=== PATIENT | male | born 1985 | race Caucasian/White ===

== ENCOUNTER 2017-04-03 04:15 | Inpatient (IN) | payer OTHER, MEDICAID ==
[~2017-04-03] VITALS: Ht 175.3 cm; Wt 74.8 kg
[~2017-04-03 04:15] MED LIST: ADA60 PO; ALLO100T21 PO; AMLO2.5T PO; ASPI81CT89 PO; CLON0.3T23 PO; LON2.5 PO; METO25TA PO; PRED20TA5 PO; SEN30 PO; SEVE800T PO; VITA-239 PO
[2017-04-03 04:17] VITALS: BP 147/100
--- NOTE | 2017-04-03 04:20 | NUR ---
AMBULATED TO ER BED 1
--- NOTE | 2017-04-03 04:30 | NUR ---
Patient being evaluated by physician at bedside.
[2017-04-03] MEDS ORDERED: MORPHINE SULFATE 4 MG/ML SYR IVP ONE (04:35)
--- NOTE | 2017-04-03 05:01 | NUR ---
PATIENT IS A 31 Y/O MALE WHO PRESENTS TO THE ED C/O ABD PAIN. PT STATES, "I WAS CONSTIPATED FOR A WEEK AND IT HAS BEEN HURTING." PT REPORTS 8/10 ACHING PAIN ON THE LOWER ABD THAT DOES NOT RADIATE. PT DENIES CP, SOB, REPORTS NAUSEA/VOMITING, DENIES DIARRHEA. NOTED GENERALIZED JAUNDICE. PT AAOX4, RR EVEN/UNLABORED. PT REPOSITIONED FOR COMFORT, BED IN LOWEST POSITION. ER MD DR. GRAY NOTIFIED. WILL CONTINUE TO MONITOR. Addendum: 04/03/17 at 0519 by MEDDCV PATIENT IS A 31 Y/O MALE WHO PRESENTS TO THE ED C/O ABD PAIN. PT STATES, "I WAS CONSTIPATED FOR A WEEK AND IT HAS BEEN HURTING." PT REPORTS 8/10 ACHING PAIN ON THE LOWER ABD THAT DOES NOT RADIATE. PT DENIES CP, SOB, REPORTS NAUSEA/VOMITING, DENIES DIARRHEA. NOTED GENERALIZED JAUNDICE. PT AAOX4, RR EVEN/UNLABORED. NOTED LEFT ABD PERITONEAL DIALYSIS SHUNT. PT REPOSITIONED FOR COMFORT, BED IN LOWEST POSITION. ER MD DR. GRAY NOTIFIED. WILL CONTINUE TO MONITOR.
[2017-04-03 05:07] LABS: BASOPHILS # (AUTO) 0.2 K/uL (0.00-0.22); BASOPHILS % (AUTO) 1.3 % (0.0-2.0); EOSINOPHILS # (AUTO) 0.1 K/uL (0-0.4); EOSINOPHILS % (AUTO) 0.8 % (0.0-4.0); HEMATOCRIT 28.7 % (36-52); HEMOGLOBIN 9.4 g/dL (12.0-18.0); LYMPHOCYTES # (AUTO) 1.6 K/uL (2.0-11.5); LYMPHOCYTES % (AUTO) 13.5 % (20.5-51.1); MEAN CORPUSCULAR HEMOGLOBIN 27 pg (27-31); MEAN CORPUSCULAR HGB CONC 33 g/dL (33-37); MEAN CORPUSCULAR VOLUME 83 fL (80-94); MONOCYTES % (AUTO) 8.8 % (1.7-9.3); NEUTROPHILS # (AUTO) 8.8 K/uL (1.8-7.7); NEUTROPHILS % (AUTO) 75.6 % (42.2-75.2); PLATELET COUNT (AUTO) 198 K/uL (140-450); RED BLOOD CELL COUNT(AUTO) 3.46 MIL/uL (4.20-6.10); WHITE BLOOD COUNT (AUTO) 11.7 K/uL (4.8-10.8)
[2017-04-03 05:30] LABS: ALBUMIN 3.2 g/dL (3.4-5.0); CARBON DIOXIDE 23.7 mmol/L (21-32); POTASSIUM 3.7 mmol/L (3.5-5.1); TOTAL BILIRUBIN 0.5 mg/dL (0.0-1.0)
[2017-04-03 05:32] LABS: CREATININE 19.8 mg/dL (0.7-1.3)
[2017-04-03] MEDS ORDERED: LACTULOSE 20 GM/30 ML UDC PO ONE (05:50)
[2017-04-03] MEDS ORDERED: LEVOFLOXACIN 500 MG/D5W PREMIX 100 ML IV ONE (05:50)
[2017-04-03] MEDS ORDERED: HYDROcodone/APAP 7.5/325 MG 1 TAB PO PRN (06:00)
[2017-04-03] MEDS ORDERED: ACETAMINOPHEN 325 MG TAB PO PRN (06:00)
[2017-04-03] MEDS ORDERED: LOSARTAN (06:08)
--- NOTE | 2017-04-03 06:15 | NUR ---
DR. PETTIT MADE AWARE THAT PT DID NOT HAVE DIALYSIS LAST NIGHT.
[2017-04-03 06:30] VITALS: BP 155/98
--- NOTE | 2017-04-03 06:30 | NUR ---
APatient will be admitted to care of DR. STUBBS. Admited to TELE. Will go to room 105B . Belongings list completed. Report to DEVANG DE LA FUENTE. Addendum: 04/03/17 at 0644 by MEDDCV Patient will be admitted to care of DR. STUBBS. Admited to TELE. Will go to room 105B . Belongings list completed. Report to DEVANG DE LA FUENTE.
--- NOTE | 2017-04-03 06:30 | NUR ---
RECEIVED PT FROM ER VIA [facility] PT IS AAOX4 ON TELEMETRY SR IV ON LEFT HAND GAUGE # 22 INFUSING LEVAQUIN AT THIS TIME, ABD CATHETER FOR PERITONEAL DIALYSIS NOT DISTRESS NOTED MRSA NARES SCREEN PROTOCOL SENT TO LAB PT IS ORIENTED TO THE FLOOR CALL LIGHT WITHIN REACH.
[2017-04-03 06:50] LABS: PROTHROMBIN TIME 9.4 secs (10.8-13.4)
[2017-04-03] MEDS: NACL 0.9% 1,000 ML IV SCH (06:54)
--- NOTE | 2017-04-03 07:30 | NUR ---
RECEIVED BEDSIDE REPORT FROM POST OFFICE CLERK RN. PT IS AAOX4, ON TELE MONITOR, IV NOTED ON THE LEFT HAND GAUGE # 22 INFUSING WELL. ABD CATHETER FOR PERITONEAL DIALYSIS NOTED, DRY, CLEAN AND INTACT. NO S/S OF DISTRESS NOTED. BED LOWERED. CALL LIGHT WITHIN REACH. WILL CONTINUE TO MONITOR.
--- NOTE | 2017-04-03 07:30 | NUR ---
PT IS ENDORSED TO MICHAEL DE LA FUENTE FOR CONTINUITY OF CARE
[2017-04-03 07:42] LABS: CHOL/HDL RATIO 3.7 (1-4.5); FREE T4 (FREE THYROXINE) 1.09 ng/dL (0.76-1.46); MAGNESIUM 2.5 mg/dL (1.8-2.4); PHOSPHORUS 5.4 mg/dL (2.5-4.9); THYROID STIMULATING HORMONE 0.9 uIU/mL (0.34-3.74)
[2017-04-03 07:43] VITALS: BP 156/102
[2017-04-03] MEDS ORDERED: DOCUSATE SODIUM 100 MG GELCAP PO SCH (09:00)
[2017-04-03] MEDS ORDERED: PIPERACILLIN/TAZOBACTAM 2.25 GM in DEXTROSE 5% 50 ML IV SCH (09:00)
[2017-04-03] MEDS: PANTOPRAZOLE 40 MG INJ VIAL IVP SCH (09:08)
[2017-04-03] MEDS: LACTOBACILLUS RHAMNOSUS GG 1 EACH CAP PO SCH (09:08)
--- NOTE | 2017-04-03 09:30 | NUR ---
NOTIFIED DR ABOUT PT'S SEVERE PAIN. DR WILL PUT IN ORDERS.
[2017-04-03] MEDS ORDERED: MORPHINE SULFATE 2 MG/ML SYR IVP PRN (09:50)
[2017-04-03] MEDS: PIPER/TAZO 2.25GM/D5W PREMIX 50 ML IV SCH ×2 (10:05→21:27)
[2017-04-03] MEDS ORDERED: SODIUM PHOSPHATE 118 ML ENEM RC SCH (10:32)
[2017-04-03] MEDS: SODIUM PHOSPHATE 118 ML ENEM RC PRN ×2 (11:15→17:28)
--- NOTE | 2017-04-03 11:15 | NUR ---
ENEMA GIVEN, PT WENT TO RESTROOM BUT STATED HE DIDN'T HAVE ANY BM. DR NOTIFIED.
[2017-04-03] MEDS ORDERED: HYDROmorphone PFS 2 MG/ML SYR IVP PRN (11:30)
[2017-04-03] MEDS ORDERED: MORPHINE SULFATE 4 MG/ML SYR IVP PRN (11:45)
[2017-04-03] MEDS: METOCLOPRAMIDE 10 MG/2 ML INJ VIAL IVP SCH ×3 (11:59→23:10)
[2017-04-03] MEDS: LACTULOSE 20 GM/30 ML UDC PO SCH ×2 (11:59→16:37)
[2017-04-03] MEDS: SENNA 8.6 MG TAB PO SCH ×3 (11:59→21:28)
[2017-04-03 12:00] VITALS: BP 176/108
--- NOTE | 2017-04-03 12:00 | NUR ---
PT WAS HEP LOCKED FOR ABD CT. TICKET TO RIDE PROVIDED.
[2017-04-03] MEDS: ONDANSETRON 4 MG/2 ML VIAL IVP PRN (12:54)
--- NOTE | 2017-04-03 13:00 | NUR ---
NOTIFIED DR ABAD ABOUT PT'S ELEVATED BLOOD PRESSURE 176/108. STATED WILL ORDER TO CONTINUE WITH SOME OF PT'S HOME MEDS.
--- NOTE | 2017-04-03 15:30 | NUR ---
CHARGE NURSE KI NOTIFIED DIALYSIS NURSE ALICIA, MADE HER AWARE OF MD'S DIALYSIS ORDER FOR THE PT.
--- NOTE | 2017-04-03 16:25 | NUR ---
PT WAS HEP LOCKED FOR ABD CT. TICKET TO RIDE PROVIDED. Addendum: 04/03/17 at 1628 by Pelon De La Fuente RN PLEASE DISREGARD THE NOTE, ENTERED WRONG TIME
--- NOTE | 2017-04-03 17:00 | NUR ---
NOTIFIED DR. ABAD ABOUT ELEVATED BP 182/116. DR ABAD STATED IT'S EXPECTED IF PT STILL VOMITING AND CAN GIVE METOPROLOL NOW.
[2017-04-03] MEDS: METOPROLOL 50 MG TAB PO SCH (17:23)
[2017-04-03 17:55] VITALS: BP 182/116
--- NOTE | 2017-04-03 18:00 | NUR ---
PT STATED HE HAD TWO BOWEL MOVEMENT, SMALL AMOUNT. WILL CONTINUE TO MONITOR. LAST ENEMA WAS GIVEN AT 1728.
--- NOTE | 2017-04-03 18:30 | NUR ---
PT HAS BEEN SEEN BY DR. DALLAS. DR HOFFMANN STRESS TEST TOMORROW 1200. WILL HOLD STOOL SOFTENER AND LACTULOSE DUE TO BMX4. Addendum: 04/03/17 at 1919 by Pelon De La Fuente RN PLEASE DISREGARD THIS NOTE, IT'S ON THE WRONG PATIENT
--- NOTE | 2017-04-03 19:16 | NUR ---
ENDORSED PT TO MANAGER TESTING RN. PT REPORT GIVEN AT BEDSIDE. PT IS IN STABLE CONDITION. NO S/S OF DISTRESS NOTED.
--- NOTE | 2017-04-03 19:17 | NUR ---
RECEIVED BEDSIDE REPORT FROM DAY SHIFT NURSE CARLENE RN, PT STABLE, NO DISTRESS NOTED, IV TO THE L HAND 22G RUNNING NS @ 20ML/HR, INFUSING WELL, SKIN INTACT, REPORTED HAVING NO PAIN AT THIS MOMENT, INITIAL ASSESSMENT DONE, ALL SAFETY PRECAUTION MET, CALL LIGHT WITHIN REACH, WILL CONTINUE TO MONITOR.
[2017-04-03] MEDS: NIFEdipine 60 MG TABER PO SCH (19:47)
--- NOTE | 2017-04-03 19:47 | NUR ---
PT BP OF 176/104, BP MEDICATION GIVEN, PT TOLERATED WELL, CALL LIGHT WITHIN REACH, WILL CONTINUE TO MONITOR.
--- NOTE | 2017-04-03 19:50 | NUR ---
PT C/O OF STOMACH ACID AND DISCOMFORT, NOTIFIED DR. PETTIT, ORDERED FAMOTIDINE, WILL CONTINUE WITH ORDER.
[2017-04-03 20:00] VITALS: BP 176/104
--- NOTE | 2017-04-03 20:10 | NUR ---
DIALYSIS NURSE AT BEDSIDE, TO START PERITONEAL DIALYSIS. PT STABLE, NO DISTRESS NOTED, CALL LIGHT WITHIN REACH.
[2017-04-03] MEDS ORDERED: FAMOTIDINE 20 MG TAB PO SCH ×2 (20:20→22:50)
[2017-04-03] MEDS: POLYETHYLENE GLYCOL 17 GM/PKT PO SCH (21:00)
[2017-04-03] MEDS: LOSARTAN 25 MG TAB PO SCH (21:27)
--- NOTE | 2017-04-03 21:28 | NUR ---
DUE MEDICATION GIVEN, PT REFUSED MIRALAX, TOLERATED WELL, NO DISTRESS NOTED, CALL LIGHT WITHIN REACH.
--- NOTE | 2017-04-03 23:39 | NUR ---
PT BP OF 193/122, HR OF 68, PT ASYMPTOMATIC, NO DISTRESS NOTED, DR. PETTIT NOTIFIED, DR SAW PT, AND ORDERED CLONIDINE 0.4 MG TO BE GIVEN. WILL CONTINUE WITH ORDER.
[2017-04-03] MEDS ORDERED: cloNIDine 0.1 MG TAB PO ONE (23:45)
[2017-04-03] MEDS ORDERED: cloNIDine 0.1 MG TAB PO SCH (23:55)
[2017-04-04] VITALS: BP 193/122
--- NOTE | 2017-04-04 00:07 | NUR ---
BP MEDICATION GIVEN PER DR ORDER, PT STABLE, NO DISTRESS NOTED, CALL LIGHT WITHIN REACH.
[2017-04-04 00:38] VITALS: BP 153/94
[2017-04-04 01:38] VITALS: BP 138/77
--- NOTE | 2017-04-04 01:38 | NUR ---
RECHECKED PT BP, 138/77 HR OF 67. PT STABLE, NO DISTRESS NOTED, CALL LIGHT WITHIN REACH.
[2017-04-04 04:00] VITALS: BP 128/82
--- NOTE | 2017-04-04 04:10 | NUR ---
PT SLEEPING, NO DISTRESS NOTED, CALL LIGHT WITHIN REACH, WILL CONTINUE TO MONITOR.
[2017-04-04 05:46] LABS: BASOPHILS # (AUTO) 0.2 K/uL (0.00-0.22); BASOPHILS % (AUTO) 1.5 % (0.0-2.0); EOSINOPHILS # (AUTO) 0.1 K/uL (0-0.4); EOSINOPHILS % (AUTO) 0.7 % (0.0-4.0); HEMATOCRIT 26.1 % (36-52); HEMOGLOBIN 8.4 g/dL (12.0-18.0); LYMPHOCYTES # (AUTO) 1.7 K/uL (2.0-11.5); LYMPHOCYTES % (AUTO) 14.9 % (20.5-51.1); MEAN CORPUSCULAR HEMOGLOBIN 27 pg (27-31); MEAN CORPUSCULAR HGB CONC 32 g/dL (33-37); MEAN CORPUSCULAR VOLUME 83 fL (80-94); MONOCYTES % (AUTO) 8.7 % (1.7-9.3); NEUTROPHILS # (AUTO) 8.1 K/uL (1.8-7.7); NEUTROPHILS % (AUTO) 74.2 % (42.2-75.2); PLATELET COUNT (AUTO) 180 K/uL (140-450); RED BLOOD CELL COUNT(AUTO) 3.15 MIL/uL (4.20-6.10); RED CELL DISTRIBUTION WIDTH 15.1 % (11.6-13.7); WHITE BLOOD COUNT (AUTO) 11.1 K/uL (4.8-10.8)
[2017-04-04] MEDS: NACL 0.9% 1,000 ML IV SCH (05:58)
[2017-04-04] MEDS: METOCLOPRAMIDE 10 MG/2 ML INJ VIAL IVP SCH (06:00)
[2017-04-04 06:10] LABS: ANION GAP 14.3 (8-16); CARBON DIOXIDE 28.5 mmol/L (21-32); POTASSIUM 3.8 mmol/L (3.5-5.1)
[2017-04-04 06:13] LABS: MAGNESIUM 2.6 mg/dL (1.8-2.4); PHOSPHORUS 6.2 mg/dL (2.5-4.9)
[2017-04-04 06:16] LABS: CREATININE 19.9 mg/dL (0.7-1.3)
--- NOTE | 2017-04-04 07:19 | NUR ---
GAVE BEDSIDE REPORT TO DAY SHIFT NURSE CARLENE, ENDORSED PLAN OF CARE, PT RESTING, NO DISTRESS NOTED.
--- NOTE | 2017-04-04 07:20 | NUR ---
RECEIVED BEDSIDE REPORT FROM GRAVITY MANAGER RN. PT IS AAOX4, ON TELE MONITOR, IV NOTED ON THE LEFT HAND GAUGE # 22 INFUSING WELL. PT LIES IN BED COMFORTABLY, PERITONEAL DIALYSIS IS RUNNING, PT DENIES ANY PAIN AT THIS TIME. NO S/S OF DISTRESS NOTED. BED LOWERED. CALL LIGHT WITHIN REACH. WILL CONTINUE TO MONITOR.
[2017-04-04 08:04] VITALS: BP 155/87
--- NOTE | 2017-04-04 08:40 | NUR ---
PT FINISHED PERITONEAL DIALYSIS. PT IS IN STABLE CONDITION.
[2017-04-04] MEDS: LACTOBACILLUS RHAMNOSUS GG 1 EACH CAP PO SCH (08:48)
[2017-04-04] MEDS: SENNA 8.6 MG TAB PO SCH (08:49)
[2017-04-04] MEDS: PANTOPRAZOLE 40 MG INJ VIAL IVP SCH (08:49)
[2017-04-04] MEDS: POLYETHYLENE GLYCOL 17 GM/PKT PO SCH (08:49)
[2017-04-04] MEDS: LACTULOSE 20 GM/30 ML UDC PO SCH (08:50)
[2017-04-04] MEDS ORDERED: cloNIDine 0.1 MG TAB PO SCH ×2 (09:00)
[2017-04-04] MEDS ORDERED: MINOXIDIL 10 MG TAB PO SCH (09:00)
[2017-04-04] MEDS: LOSARTAN 25 MG TAB PO SCH (09:00)
[2017-04-04] MEDS ORDERED: [UNRECOGNIZED DRUG - REMARK] PO SCH (09:00)
[2017-04-04] MEDS ORDERED: METOPROLOL 50 MG TAB PO SCH (09:00)
[2017-04-04] MEDS ORDERED: LISINOPRIL 10 MG TAB PO SCH (09:00)
[2017-04-04] MEDS ORDERED: NIFEdipine 60 MG TABER PO SCH (09:00)
[2017-04-04] MEDS ORDERED: CINACALCET 30 MG TAB PO SCH (09:00)
[2017-04-04] MEDS: METOPROLOL 50 MG TAB PO SCH (09:00)
[2017-04-04] MEDS ORDERED: amLODIPine 5 MG TAB PO SCH (09:00)
--- NOTE | 2017-04-04 09:00 | NUR ---
PT STATED HE DOES NOT WANT TO TAKE HIS BLOOD PRESSURE MEDICATIONS ALL AT ONCE BECAUSE OF DRUG INTERACTIONS. HE SAID HE HAD BAD REACTION WHEN TAKING THEM TOGETHER. HE WANTS TO SPACE THEM OUT.
[2017-04-04] MEDS: ONDANSETRON 4 MG/2 ML VIAL IVP PRN (09:41)
--- NOTE | 2017-04-04 09:49 | NUR ---
PATIENT HAS BEEN SCREENED AND CATEGORIZED MODERATE NUTRITION RISK. PATIENT WILL BE SEEN WITHIN 3-5 DAYS OF ADMISSION. 04/05/17-04/07/[address]
--- NOTE | 2017-04-04 10:06 | NUR ---
PT STATED HE FELT MUCH BETTER AND HE HAD A BOWEL MOVEMENT, MODERATE AMOUNT AND BROWN IN COLOR.
[2017-04-04] MEDS: PIPER/TAZO 2.25GM/D5W PREMIX 50 ML IV SCH (10:15)
[2017-04-04] MEDS ORDERED: CLON0.3T23 PO (10:20)
[2017-04-04] MEDS ORDERED: AMLO10TA PO (10:20)
[2017-04-04] MEDS ORDERED: METO25TA PO (10:33)
[2017-04-04] MEDS: NIFEdipine 60 MG TABER PO SCH (11:24)
[2017-04-04 12:04] VITALS: BP 134/76
--- NOTE | 2017-04-04 12:30 | NUR ---
PT DISCHARGED TO HOME PER MD ORDER. MEDICATION TEACHINGS AND DISCHARGE INSTRUCTIONS PROVIDED. PT VERBALIZED UNDERSTANDING. IV CATH DC'ED, TIP INTACT, PRESSURE APPLIED. NO S/S OF DISTRESS NOTED. PT DENIES PAIN, VOMITING AND NAUSEA. PT LEFT IN STABLE CONDITION AND WITH ALL HIS BELONGINGS.
[2017-04-05] MEDS ORDERED: FAMOTIDINE 20 MG TAB PO SCH (09:00)
== END 2017-04-04 12:30 | disposition home or self-care (01) | DRG 391 ==
LOC: MED 04:15 → MTU 06:01
PROVIDERS: ADMIT Family Medicine; ATTEND Family Medicine
PROC: 3E1M39Z Irrigation of Peritoneal Cavity using Dialysate, Percutaneous Approach (ICD-10-PCS; principal; 2017-04-03)
DX: K52.9 Noninfective gastroenteritis and colitis, unspecified (principal); N18.6 End stage renal disease; N17.0 Acute kidney failure with tubular necrosis; I13.2 Hypertensive heart and chronic kidney disease with heart failure and with stage 5 chronic kidney disease, or end stage renal disease; I50.43 Acute on chronic combined systolic (congestive) and diastolic (congestive) heart failure; E87.1 Hypo-osmolality and hyponatremia; K56.41 Fecal impaction; E83.41 Hypermagnesemia; D63.1 Anemia in chronic kidney disease; E83.39 Other disorders of phosphorus metabolism; F12.90 Cannabis use, unspecified, uncomplicated; Z99.2 Dependence on renal dialysis; Z79.899 Other long term (current) drug therapy; Z79.82 Long term (current) use of aspirin; Z88.8 Allergy status to other drugs, medicaments and biological substances; Z82.49 Family history of ischemic heart disease and other diseases of the circulatory system
CPT/HCPCS: 36415; 71010; 74020; 80048; 80053; 82140; 82150; 83036; 83690; 83735; 83880; 84100; 84439; 84443; 84484; 85025; 85610; 85730; 87081; 93005; 96365; 96375; 99285; C9113; J1170; J1956; J2270; J2405; J2543; J2765; J7030; J7060; Q0092

== ENCOUNTER 2018-12-17 10:20 | Emergency (ER) | payer OTHER, MEDICAID ==
[~2018-12-17] VITALS: Ht 175.3 cm; Wt 78.0 kg
[~2018-12-17 10:20] MED LIST changes: -ALLO100T21 PO; +AMLO10TA PO; -AMLO2.5T PO; -ASPI81CT89 PO; -LON2.5 PO; +LOSARTAN; -PRED20TA5 PO
[2018-12-17 10:28] VITALS: BP 196/114
--- NOTE | 2018-12-17 10:52 | NUR ---
PT BIB SELF WITH C/O CP X 40 MIN. STATES TO HAVE BURNING CONSTANT PAIN AT THE LFT SIDE OF THE CHEST THAT RADIATES ACROSS LT CHEST AND SHOULDER. + SOB -N/V. DENIES DRUG USE. CONNECTED TO 2 L NC AND MONITOR . BP 180/102, DUIALYSIS PT, HAS PERITONEAL ACCESS FOR HD AT HOME. PT STATES BEING COMFORTABLE AFTER CONNCTED TO IO2 VIA NC. RESPIRATION EVEN , SLIGHT USE OF THE ACCESSORY MUSCLE. PT DENIES ANY N, V, D. DENIES CHILLS , FEVER. PT IS AAOX4, CLEAR SPEECH, EQAUL STRENGHT ON BOTH HANDS, NO FACIAL DROOPING. IV STARTED AT LFT AC 20G. DENIES LORA, BLURRY VISION. CHEST PAIN 8/[address] VIVAS ASSESSING PT AT THE BEDSIDE. PER PT, TOOK BP MEDS AT HOME BEFORE COMIMG TO ER. WILL CONTINUE TO MONITOR PT. MEDHX:PERITONEAL DIALYSIS, HTN RX:BENADRYL, NEFIDIPINE, CLONIDINE, LOSARTAN
--- NOTE | 2018-12-17 11:06 | NUR ---
CHECKED ON PT. LYING COMFORTABLY AT BED AT THIS TIME. PAIN 4/10 , STATES TO HAVE LOWERED WITH O2 VIA NC. PT NORMAL BREATHING, NO USE OF ACCESSORY MUSCLES. WILL CONTINUE TO MONTIOR PT.
[2018-12-17] MEDS ORDERED: cloNIDine 0.1 MG TAB PO ONE (11:20)
--- NOTE | 2018-12-17 11:26 | NUR ---
CHECKED ON PT. LYING COMFORTABLY IN HIS BED. DENIES ANY PAIN AT THIS TIME. ADMINISTERED MEDS ORDERED.WILL CONTINUE TO MONITOR PT. FAMILY AT THE BEDSIDE.
--- NOTE | 2018-12-17 13:10 | NUR ---
RECEIVED REPORT FROM SUDHAKAR VALDEZ, PT IN BED RESTING, NO C/O PAIN AT THIS TIME . RR EVEN UNLABORED, WILL CONTINUE TO MONITOR CLOSELY.
--- NOTE | 2018-12-17 13:17 | NUR ---
INFORMED ED MD DR. LEOS RE: TROPONIN RESULT AT THIS TIME.
[2018-12-17] MEDS ORDERED: amLODIPine 5 MG TAB PO ONE (13:30)
--- NOTE | 2018-12-17 13:30 | NUR ---
VS RECHECKED, ED MD DR. LEOS MADE AWARE RE: BP 174/105, PT AAOX4, RR EVEN UNLABORED, GCS 15, NO C/O PAIN AT THIS TIME 0/10. WILL CONTINUE TO MONITOR CLOSELY.
[2018-12-17 14:41] VITALS: BP 174/105
--- NOTE | 2018-12-17 14:42 | NUR ---
PT DISCHARGED TO HOME . DENIES ANY SOB, CP. BLOOD PRESSURE SLIGHTLY ELEVATED. MADE AWARE. PT TO TAKE THE BP MEDS AT HOME PT HAS CONSISTENT ELEVATED BP ALL TIME. PT OKAY TO GO HOME.
--- NOTE | 2018-12-17 14:43 | NUR ---
Patient discharged with v/s stable. Written and verbal after care instructions given and explained. Patient alert, oriented and verbalized understanding of instructions. Ambulatory with steady gait. All questions addressed prior to discharge. ID band removed. Patient advised to follow up with PMD. Rx of TRAMADOL HCL 50 MG TAB given. Patient educated on indication of medication including possible reaction and side effects. Opportunity to ask questions provided and answered.
== END 2018-12-17 14:43 | disposition home or self-care (01) ==
LOC: MED 10:20
DX: R07.89 Other chest pain (principal); R06.02 Shortness of breath; R61 Generalized hyperhidrosis; I12.9 Hypertensive chronic kidney disease with stage 1 through stage 4 chronic kidney disease, or unspecified chronic kidney disease; N18.6 End stage renal disease; E05.90 Thyrotoxicosis, unspecified without thyrotoxic crisis or storm; Z99.2 Dependence on renal dialysis; Z79.899 Other long term (current) drug therapy
CPT/HCPCS: 36415; 84484; 93005; 99284

== ENCOUNTER 2020-06-16 15:00 | Emergency (ER) | payer OTHER, MEDICAID ==
[~2020-06-16] VITALS: Ht 175.3 cm; Wt 70.3 kg
[~2020-06-16 15:00] MED LIST changes: -ADA60 PO; +CLON-865 PO; -CLON0.3T23 PO; +NIFE-183 PO
[2020-06-16 15:03] VITALS: BP 199/94
--- NOTE | 2020-06-16 15:10 | NUR ---
pt ambulated to bed 7 with steady gait
[2020-06-16] MEDS ORDERED: LORazepam 1 MG TAB PO ONE (15:15)
--- NOTE | 2020-06-16 15:19 | NUR ---
EMT AT BEDSIDE FOR EKG
--- NOTE | 2020-06-16 15:22 | NUR ---
35 Y/O MALE C/O SOB AND ANGINA 11/11 STARTED 1300 TODAY. DESCRIBES PRESSURE AND RADIATES TO LEFT AND RIGHT SHOULDER. PT STATES DIALYSIS MWF, TODAY AT 0900 WITH LEFT CHEST SIDE PORT PRESENT. PT STATE HE FELT GOOD LEAVING DIALYSIS THEN BECAME SOB, HOT FLASHES, AND CHILLS. PT IS ANURIC WITH LBM THIS MORNING THAT PT STATES WAS NORMAL FOR HIM. PT DENIES N/V. PT LUNG SOUNDS CLEAR BILATERAL THROUGHOUT, CAP REFILL <3 SECONDS, WITH NO EDEMA. PT TOOK HIS PRESCRIBED METOPROLOL AND CLONIDINE TODAY. PT IS A&O X4, LAYING IN BED. BED IN LOWEST POSITION, BRAKES LOCKED WITH X1 SIDERAIL UP. PT STATED HE HAS BEEN UNDER A LOT OF STRESS LATELY- PT HAD PERITONEAL CATHETETER- HAD IT REMOVED DUE TO INFECTION WITH ABX X6 MONTHS. PMH: ESRD, HTN ALLERGIES TO HYDRALIZINE
--- NOTE | 2020-06-16 15:38 | NUR ---
RAD AT PT BEDSIDE
[2020-06-16 15:39] LABS: BASOPHILS # (AUTO) 0.1 K/uL (0.00-0.22); EOSINOPHILS # (AUTO) 0.2 K/uL (0-0.4); EOSINOPHILS % (AUTO) 2.8 % (0.0-4.0); HEMATOCRIT 33.3 % (36-52); HEMOGLOBIN 10.9 g/dL (12.0-18.0); LYMPHOCYTES # (AUTO) 1.1 K/uL (2.0-11.5); LYMPHOCYTES % (AUTO) 13.7 % (20.5-51.1); MEAN CORPUSCULAR HEMOGLOBIN 26 pg (27-31); MEAN CORPUSCULAR HGB CONC 33 g/dL (33-37); MEAN CORPUSCULAR VOLUME 77.7 fL (80-94); MONOCYTES # (AUTO) 0.6 K/uL (0.8-1.0); MONOCYTES % (AUTO) 7.7 % (1.7-9.3); NEUTROPHILS # (AUTO) 6.1 K/uL (1.8-7.7); NEUTROPHILS % (AUTO) 74.8 % (42.2-75.2); PLATELET COUNT (AUTO) 252 K/uL (140-450); RED BLOOD CELL COUNT(AUTO) 4.29 MIL/uL (4.20-6.10); RED CELL DISTRIBUTION WIDTH 14.4 % (11.6-13.7); WHITE BLOOD COUNT (AUTO) 8.1 K/uL (4.8-10.8)
[2020-06-16 15:55] LABS: ALBUMIN 4.2 g/dL (3.4-5.0); ANION GAP 15.7 (8-16); CARBON DIOXIDE 31.3 mmol/L (21-32); TOTAL BILIRUBIN 0.4 mg/dL (0.0-1.0)
[2020-06-16 16:12] LABS: CREATININE 6.5 mg/dL (0.6-1.3)
--- NOTE | 2020-06-16 16:47 | NUR ---
PT SLEEPING IN BED WITH EVEN AND UNLABORED RESPIRATIONS OBSERVED. BED IN LOWEST POSITION, BRAKES LOCKED, X1 SIDERAIL UP. VSS. WILL CONTINUE TO MONITOR.
--- NOTE | 2020-06-16 17:34 | NUR ---
EMT MARIELLA AT BEDSIDE FOR EKG
--- NOTE | 2020-06-16 17:55 | NUR ---
LAB AT PT BEDSIDE
[2020-06-16 18:55] VITALS: BP 179/106
--- NOTE | 2020-06-16 18:56 | NUR ---
Patient does not wish to proceed with medical care recommended by DR. CASPER. Patient given information related to possible complications, up to and including , which could occur as a result of leaving hospital at this time. Patient verbalizes understanding of risks involved leaving against medical advice. Patient has signed AMA form. PT DCRX ATIVAN 0.5MG PO TID PRN ANXIETY.
== END 2020-06-16 15:03 | disposition left against medical advice (07) ==
LOC: MED 15:00
DX: F41.9 Anxiety disorder, unspecified (principal); I12.0 Hypertensive chronic kidney disease with stage 5 chronic kidney disease or end stage renal disease; N18.6 End stage renal disease; Z99.2 Dependence on renal dialysis; E07.9 Disorder of thyroid, unspecified; Z88.8 Allergy status to other drugs, medicaments and biological substances; Z79.899 Other long term (current) drug therapy
CPT/HCPCS: 36415; 71045; 80053; 84484; 85025; 93005; 99285

== ENCOUNTER 2021-01-02 03:39 | Emergency (ER) | payer OTHER, MEDICAID ==
[~2021-01-02] VITALS: Ht 175.3 cm; Wt 77.1 kg
[~2021-01-02 03:39] MED LIST changes: +CEL250 PO; +PRED10TA5 PO; +TACR1CAP17 PO
[2021-01-02 03:42] VITALS: BP 146/89
--- NOTE | 2021-01-02 03:46 | NUR ---
TO ROOM 8 FROM TRIAGE
--- NOTE | 2021-01-02 03:48 | NUR ---
35 YO/M BIBS W C/O DIARRHEA X5 DAYS WATERY APPROX 20EPISODES DAILY NO BLOOD IN BOWEL MOVEMENTS. PATIENT REPORTS INTERMITTENT HEADACHE, STOMACH ACHE, AND VOMITINS THESE SYMPTOMS NOT PRESENT AT THIS TIME. PATIENT REPORTS DAUGHTER WAS SICK W SIMILAR SYMPTOMS INCLUDING THE DIARRHEA. REPORTS HIGHEST TEMP WAS 100.1 FARENHEIT. DENIES ANY DIZZYNESS/LIGHT HEADEDNESS. BOWEL SOUNDS PRESENT THROUGHOUT, ABDOMEN TENDER TO TOUCH ON RLQ. DENIES URINARY PROBLEMS. PATIENT LAYING IN BED LOCKED IN LOWEST POSITION, X1 SIDERAIL UP. HOB ELEVATED. BREATHING EVEN AND UNLABORED. NAD NOTED, WILL CONTINUE TO MONITOR. PMH: R KIDNEY TRANSPLANT X3 MO AGO ALLERGIES: HYDRALAZINE
--- NOTE | 2021-01-02 04:40 | NUR ---
LABS DRAWN AND HANDED TO [facility].
[2021-01-02] MEDS ORDERED: NACL 0.9% 1,000 ML IV ONE (04:45)
--- NOTE | 2021-01-02 05:15 | NUR ---
STOOL AND URINE SAMPLE COLLECTED AND SENT TO LAB W 30CC OF BLACK WATERY STOOL, AND 40 CC OF KALLIE COLORED URINE.
[2021-01-02] MEDS ORDERED: CIPROFLOXACIN 250 MG TAB PO ONE (06:00)
[2021-01-02] MEDS ORDERED: VANCOMYCIN 500 MG VIAL PO SCH (06:00)
[2021-01-02] MEDS ORDERED: VANC125C5 PO (06:01)
[2021-01-02] MEDS ORDERED: CIPR500T4 PO (06:01)
[2021-01-02] MEDS ORDERED: IMO2 PO (06:01)
[2021-01-02 06:40] VITALS: BP 151/103
--- NOTE | 2021-01-02 06:40 | NUR ---
Patient discharged with v/s stable. Written and verbal after care instructions given and explained. Patient alert, oriented and verbalized understanding of instructions. Ambulatory with steady gait. All questions addressed prior to discharge. ID band removed. Patient advised to follow up with PMD. Rx of CIPRO, LOPERAMIDE, VANCOMYCIN HCI given. Patient educated on indication of medication including possible reaction and side effects. Opportunity to ask questions provided and answered.
[2021-01-02 19:26] LABS: HEMATOCRIT 43.2 % (36-52); HEMOGLOBIN 14.5 g/dL (12.0-18.0); MEAN CORPUSCULAR HEMOGLOBIN 27 pg (27-31); MEAN CORPUSCULAR VOLUME 79.1 fL (80-94); RED BLOOD CELL COUNT(AUTO) 5.46 MIL/uL (4.20-6.10); WHITE BLOOD COUNT (AUTO) 3.1 K/uL (4.8-10.8)
[2021-01-02 19:27] LABS: MEAN CORPUSCULAR HGB CONC 34 g/dL (33-37); PLATELET COUNT (AUTO) 210 K/uL (140-450); RED CELL DISTRIBUTION WIDTH 13.1 % (11.6-13.7)
[2021-01-02 19:28] LABS: BASOPHILS % (AUTO) 0.3 % (0.0-2.0); EOSINOPHILS % (AUTO) 0.2 % (0.0-4.0); LYMPHOCYTES # (AUTO) 0.3 K/uL (2.0-11.5); LYMPHOCYTES % (AUTO) 10.1 % (20.5-51.1); MONOCYTES # (AUTO) 0.5 K/uL (0.8-1.0); MONOCYTES % (AUTO) 17.4 % (1.7-9.3); NEUTROPHILS # (AUTO) 2.2 K/uL (1.8-7.7)
[2021-01-02 19:29] LABS: CARBON DIOXIDE 23.1 mmol/L (21-32); POTASSIUM 3.1 mmol/L (3.5-5.1)
[2021-01-02 19:30] LABS: ALBUMIN 3.7 g/dL (3.4-5.0); CREATININE 1.6 mg/dL (0.6-1.3); TOTAL BILIRUBIN 0.7 mg/dL (0.0-1.0)
[2021-01-02 19:31] LABS: APPEARANCE,URINE CLEAR (CLEAR); COLOR,URINE ORANGE (YELLOW)
[2021-01-02 19:32] LABS: BILIRUBIN,URINE NEGATIVE (NEGATIVE); BLOOD, URINE 1+ (NEGATIVE); LEUKOCYTE ESTERASE ,URINE NEGATIVE (NEGATIVE); NITRITE, URINE NEGATIVE (NEGATIVE); UGLUCOSE NEGATIVE (NEGATIVE)
[2021-01-02 19:33] LABS: RBC,URINE 0-5 /HPF (0-5); URINE AMORPHOUS URATE 2+ /HPF (None Seen); WBC,URINE 0-5 /HPF (0-5)
== END 2021-01-02 06:40 | disposition home or self-care (01) ==
LOC: MED 03:39
DX: K52.9 Noninfective gastroenteritis and colitis, unspecified (principal); K92.1 Melena; I10 Essential (primary) hypertension; E06.9 Thyroiditis, unspecified; Z87.448 Personal history of other diseases of urinary system; Z88.8 Allergy status to other drugs, medicaments and biological substances; Z79.899 Other long term (current) drug therapy
CPT/HCPCS: 36415; 80053; 81001; 82150; 83690; 85025; 87070; 89055; 96360; 99283; J3370; J7030